=== PATIENT | male | born 1995 | race Caucasian/White ===

== ENCOUNTER 2018-02-10 13:56 | Emergency (ER) | payer OTHER ==
[~2018-02-10] VITALS: Ht 182.9 cm; Wt 59.0 kg
[2018-02-10 14:46] VITALS: BP 134/65
== END 2018-02-10 14:47 | disposition home or self-care (01) ==
LOC: M.ERS 13:56
DX: S63.692A Other sprain of right middle finger, initial encounter (principal); F17.210 Nicotine dependence, cigarettes, uncomplicated; X58.XXXA Exposure to other specified factors, initial encounter; Y93.89 Activity, other specified; Y92.89 Other specified places as the place of occurrence of the external cause; Y99.8 Other external cause status

== ENCOUNTER 2018-10-23 10:14 | Emergency (ER) | payer OTHER ==
[~2018-10-23] VITALS: Ht 182.9 cm; Wt 61.2 kg
[2018-10-23] MEDS ORDERED: TENSION HEADAC1 EAC2 PO (10:35)
[2018-10-23] MEDS ORDERED: TORADOL 10 MG T10 MG PO (11:39)
[2018-10-23 11:48] VITALS: BP 110/68
== END 2018-10-23 11:49 | disposition home or self-care (01) ==
LOC: M.ERS 10:14
DX: R51 Headache (principal)

== ENCOUNTER → 2019-10-17 | Outpatient (CLI) | payer OTHER ==
[~2019-10-17] MED LIST: TENSION HEADAC1 EAC2 PO; TORADOL 10 MG T10 MG PO
[2019-10-17 17:19] LABS: ABSOLUTE EOSINOPHILS 0.2 thou/uL (0.0-0.7); ABSOLUTE MONOCYTES 0.5 thou/uL (0.0-1.2); ABSOLUTE NEUTROPHILS 3.6 thou/uL (1.6-8.1); BASOPHILS 0.7 %; EOSINOPHILS 3.5 %; HEMATOCRIT 39.4 % (42.0-52.0); HEMOGLOBIN 13.7 gm/dL (14.0-18.0); LYMPHOCYTES 30.8 %; MCH 31.4 pg (26.0-34.0); MCHC 34.7 g/dL (28.0-37.0); MCV 90.4 fL (80.0-100.0); MONOCYTES 8.1 %; MPV 8.4 fl. (7.2-11.1); NUCLEATED RBCS 0 /100WBC; PLATELET COUNT* 248 thou/uL (150-400); POLYS 56.9 %; RBC 4.36 mil/uL (4.50-6.00); RDW-CV 12.9 % (10.5-14.5); WBC 6.3 thou/uL (4.0-11.0)
[2019-10-17 17:28] LABS: ALBUMIN 4.5 g/dL (3.4-5.0); CALCIUM 8.9 mg/dL (8.5-10.1); CREATININE 1.1 mg/dL (0.6-1.3); POTASSIUM 3.8 mmol/L (3.5-5.1); TOTAL BILIRUBIN 0.2 mg/dL (<0.1-1.0); TOTAL PROTEIN 7.1 g/dL (6.4-8.2)
[2019-10-17 18:21] LABS: ESR (SEDRATE) 0 mm/hr (0-15)
== END ==
LOC: M.LAB 16:50 → M.MRI 17:30
PROVIDERS: Psychiatry & Neurology Neuromuscular Medicine
DX: G43.019 Migraine without aura, intractable, without status migrainosus (principal); H57.12 Ocular pain, left eye; F12.90 Cannabis use, unspecified, uncomplicated